=== PATIENT | male | born 1975 | race Caucasian/White ===

== ENCOUNTER → 2021-05-09 | Outpatient (CLI) | payer OTHER ==
[~2021-05-09] MED LIST: CIPR500 PO; HYDACE5 PO; OTC ALLERGY MEDS; RXHYDACE PO
== END | disposition home or self-care (01) ==
LOC: LAB 14:02 → LAB SHORT 14:02
DX: D36.13 Benign neoplasm of peripheral nerves and autonomic nervous system of lower limb, including hip (principal); M77.51 Other enthesopathy of right foot and ankle; M85.671 Other cyst of bone, right ankle and foot
CPT/HCPCS: 88302